=== PATIENT | male | born 1975 | race African-American/Black ===

== ENCOUNTER 2019-02-06 22:50 | Emergency (ER) | payer OTHER ==
[~2019-02-06] VITALS: Ht 170.2 cm; Wt 70.3 kg
[2019-02-07] MEDS ORDERED: FLEXERIL PO (00:16)
[2019-02-07] MEDS ORDERED: HYDROCODON-ACE1 EAC8 PO (00:16)
[2019-02-07] MEDS ORDERED: ZOFRAN ODT4 MG PO (00:17)
[2019-02-07 00:34] VITALS: BP 152/98
== END 2019-02-07 00:35 | disposition home or self-care (01) ==
LOC: M.ERS 22:50
DX: M62.838 Other muscle spasm (principal); R51 Headache; M54.2 Cervicalgia